=== PATIENT | male | born 1945 | race Caucasian/White ===

== ENCOUNTER → 2018-11-22 | Outpatient (CLI) | payer OTHER | LOC: RAD 12:26 | DX: R07.9 Chest pain, unspecified (principal); R06.02 Shortness of breath ==

== ENCOUNTER → 2018-12-11 | Outpatient (CLI) | payer OTHER ==
[~2018-12-11] VITALS: Ht 180.3 cm; Wt 98.9 kg
[~2018-12-11] MED LIST: ASPIR 8181 M1 PO; ATORVASTATIN CA40 MG PO; CLARITIN10 MG PO; FISH OIL 1,001000 M2 PO; FLOMAX0.4 MG PO; MOBIC15 MG PO; PRILOSEC 20 MG20 MG PO; UNICOMPLEX M TA1 TA1 PO; ZIAC 5-6.25 MG1 EACH PO
[2018-12-11 07:14] VITALS: BP 158/79
--- NOTE | 2018-12-11 08:58 | CATHLAB ---
[facility] [place] [address] INVASIVE PROCEDURE REPORT Name: HALIE MTZ Room #: REG [facility]#: [id number] ������������� Admission: 12/11/18 ������������� Attend Phys: Juvenal Díaz, Discharge: ��� ������������� ��� Date of : 43 Date of Service: 12/11/18 0858 �� Report #: [id number] �������� ��������������������������������������������[id number] THIS REPORT FOR: //name// APPROVED REPORT Study performed: 12/11/2018 07:57:16 Patient Details Patient Status: Out-Patient Room #: The patient is a 73 year-old male Event Personnel Juvenal Díaz Clinical Education Consultant, Sneha Velasco, EMERGENCY DETAIL DRIVER Monitor, Diego Epstein RN, Inder Mcqueen Scrub Procedures Performed Art Access - R femoral artery* Left Heart Cath w/or w/o Coronaries [id number] [place] [address] Initial Mod Sed Same Phys/QHP Gr5y [id number] Hemostasis w/ Mynx Indication Positive stress test, Chest pain Procedure Narrative The Right Groin^ was infiltrated with 1% Lidocaine subcutaneous anesthesia. A PINNACLE 6FR Sheath #[id number] sheath was inserted into the RFA^. Coronary angiography was performed using coronary diagnostic catheters. The right coronary system was accessed and visualized with a JR4 catheter. The left coronary system was accessed and visualized with a JL4 catheter. The left ventricle was accessed and visualized with a angled pigtail catheter. Left ventricular/Aortic Valve gradient assessed via catheter pullback. Left ventriculogram was performed in 30 degree projection. Closure device was deployed with a 6 Fr MYNXGRIP 6/7F #[id number]. The patient tolerated the procedure well and there were no complications associated with the procedure. There was no hematoma. Intraoperative Conscious Sedation Sedation start time: 08:03 Case end Time: 08:32 Fentanyl 50 mcg Versed 1.5 mg Fluoro Time: 2.16 minutes Dose: DAP 4188.10 cGycm2 466 mGy Contrast Type and Amount: Omnipaque 115 ml [facility] [address] [address] INVASIVE PROCEDURE REPORT Name: HALIE MTZ Room #: [facility]#: [id number] ������������� Admission: 12/11/18 ������������� Attend Phys: Juvenal Díaz, Discharge: ��� ������������� ��� Date of : 43 Date of Service: 12/11/18 0858 �� Report #: [id number] �������� ��������������������������������������������[id number] Coronary Angiography The patient's coronary anatomy is right dominant. Diagnostic Cath Left Main Normal left main LAD Normal left anterior descending Diagonal 1 Small diagonal branch, angiographically normal Circumflex Large nondominant circumflex giving rise to a single large bifurcating marginal branch OM1 Normal bifurcating marginal branch Right Coronary The right coronary stent dominant and angiographically normal R PDA Large, normal posterior descending branch RPLV Large normal posterior lateral branch Left Ventriculography The left ventricle is normal in size with normal contractility. The left ventricular ejection fraction is estimated to be 60-65%. Left ventricular wall motion abnormalities are not present. There is no mitral insufficiency. Hemodynamics The aortic pressure is 178/76 mmHg with a mean of 117 mmHg. The left ventricular pressure is 197/12 mmHg with a mean of mmHg. The left ventricular end diastolic pressure is 27 mmHg. Conclusion 1. Normal global and regional left ventricular systolic function. Ejection fraction 65%. 2. Normal coronary vasculature. Right coronary dominant circulation. ��������������������������������������������� <ELECTRONICALLY SIGNED> ���������������������������������������� By: Juvenal Díaz MD, FACC ��������������������������������������������� 12/11/18857 7 7 Juvenal Díaz MD, FACC /INF
--- NOTE | 2018-12-11 09:18 | EKG ---
[address] [address] ELECTROCARDIOGRAM REPORT Name: HALIE MTZ Room #: REG 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1945 Requested By: Juvenal Díaz Order Number: [id number] MD: Juvenal Díaz Measurements Intervals Boomer Rate: 61 P: 31 GA: 211 QRS: 37 QRSD: 116 T: 29 QT: 421 QTc: 424 Interpretive Statements Sinus rhythm Normal tracing No previous ECG available for comparison Electronically Signed On 12-11-2018 9:17:57 ECONOMIST RESEARCH ASSISTANT by Juvenal Díaz [email or web address] ��������������������������������������������� <ELECTRONICALLY SIGNED> ���������������������������������������� By: Juvenal Díaz MD, [facility] ��������������������������������������������� 12/11/18 0917 0729 0729 Juvenal Díaz MD, FACC /EPI
== END | disposition home or self-care (01) ==
LOC: CATH 06:36
DX: R07.9 Chest pain, unspecified (principal); R94.39 Abnormal result of other cardiovascular function study; M19.90 Unspecified osteoarthritis, unspecified site; K21.9 Gastro-esophageal reflux disease without esophagitis; I10 Essential (primary) hypertension; E78.2 Mixed hyperlipidemia; N40.0 Benign prostatic hyperplasia without lower urinary tract symptoms; Z87.891 Personal history of nicotine dependence; Z98.890 Other specified postprocedural states; Z79.899 Other long term (current) drug therapy; Z79.82 Long term (current) use of aspirin

== ENCOUNTER → 2018-12-17 | Outpatient (CLI) | payer OTHER | LOC: CAT 08:33 | PROVIDERS: Internal Medicine | DX: R06.02 Shortness of breath (principal) ==

== ENCOUNTER → 2019-10-30 | Outpatient (CLI) | payer OTHER | LOC: SJCVC 15:01 | DX: I10 Essential (primary) hypertension (principal); E78.2 Mixed hyperlipidemia; I25.10 Atherosclerotic heart disease of native coronary artery without angina pectoris; K21.9 Gastro-esophageal reflux disease without esophagitis; Z90.89 Acquired absence of other organs; Z77.098 Contact with and (suspected) exposure to other hazardous, chiefly nonmedicinal, chemicals; Z79.51 Long term (current) use of inhaled steroids; Z79.82 Long term (current) use of aspirin; Z79.2 Long term (current) use of antibiotics; Z79.899 Other long term (current) drug therapy; Z87.891 Personal history of nicotine dependence ==

== ENCOUNTER → 2020-07-29 | Outpatient (CLI) | payer OTHER | LOC: SJCVC 10:02 | PROVIDERS: ATTEND Internal Medicine | DX: R06.00 Dyspnea, unspecified (principal); I10 Essential (primary) hypertension; E78.2 Mixed hyperlipidemia; E78.5 Hyperlipidemia, unspecified; Z77.098 Contact with and (suspected) exposure to other hazardous, chiefly nonmedicinal, chemicals ==

== ENCOUNTER → 2021-08-03 | Outpatient (CLI) | payer OTHER | LOC: SJCVC 10:24 | PROVIDERS: ATTEND Internal Medicine | DX: R94.31 Abnormal electrocardiogram [ECG] [EKG] (principal); R06.00 Dyspnea, unspecified; I10 Essential (primary) hypertension; E78.2 Mixed hyperlipidemia; I25.10 Atherosclerotic heart disease of native coronary artery without angina pectoris; K21.9 Gastro-esophageal reflux disease without esophagitis; M19.90 Unspecified osteoarthritis, unspecified site; F10.10 Alcohol abuse, uncomplicated; R06.02 Shortness of breath; N40.0 Benign prostatic hyperplasia without lower urinary tract symptoms; Z72.89 Other problems related to lifestyle; Z77.098 Contact with and (suspected) exposure to other hazardous, chiefly nonmedicinal, chemicals; Z79.82 Long term (current) use of aspirin; Z79.899 Other long term (current) drug therapy; Z87.891 Personal history of nicotine dependence; Z82.49 Family history of ischemic heart disease and other diseases of the circulatory system ==

== ENCOUNTER → 2021-09-22 | Outpatient (CLI) | payer OTHER | LOC: SJCVCIMAG 07:55 | PROVIDERS: ATTEND Internal Medicine | DX: I08.8 Other rheumatic multiple valve diseases (principal); R00.1 Bradycardia, unspecified; R06.00 Dyspnea, unspecified; I11.9 Hypertensive heart disease without heart failure; E78.5 Hyperlipidemia, unspecified; I25.10 Atherosclerotic heart disease of native coronary artery without angina pectoris; Z77.098 Contact with and (suspected) exposure to other hazardous, chiefly nonmedicinal, chemicals; E78.2 Mixed hyperlipidemia; Z82.49 Family history of ischemic heart disease and other diseases of the circulatory system; F17.210 Nicotine dependence, cigarettes, uncomplicated; Z79.82 Long term (current) use of aspirin; Z79.899 Other long term (current) drug therapy; Z72.89 Other problems related to lifestyle ==

== ENCOUNTER → 2021-10-07 | Outpatient (CLI) | payer OTHER | LOC: SJCVCIMAG 07:09 | PROVIDERS: ATTEND Internal Medicine | DX: E85.82 Wild-type transthyretin-related (ATTR) amyloidosis (principal); I10 Essential (primary) hypertension; I51.89 Other ill-defined heart diseases; Z79.899 Other long term (current) drug therapy; Z72.89 Other problems related to lifestyle; Z87.891 Personal history of nicotine dependence ==